=== PATIENT | male | born 1995 | race Caucasian/White ===

== ENCOUNTER 2016-06-08 14:33 | Emergency (ER) | payer OTHER ==
[2016-06-08 14:43] VITALS: BP 116/90; TEMP 97.8; BMI 20.2
--- NOTE | 2016-06-08 15:04 | ED.PDOC ---
General ED Provider: Dr. DA GARLAND-ER Chief Complaint: Hand Pain/Injury Stated Complaint: i fell in the shower---my wrist and back and hips hurt--i didnt hurt my head or my neck --denies dorsey or neck pain Time Seen by Physician: 14:40 Mode of Arrival: Walk-In Information Source: Patient Exam Limitations: No limitations Primary Care Provider: DA GARLAND Nursing and Triage Documentation Reviewed and Agree: Yes Musculoskeletal Complaint Exam - Hand/Wrist Complaint/Exam Location of Pain: Reports: Left, Hand, Wrist Mechanism of Injury: Reports: Trauma Onset/Duration: 24hrs Symptoms Are: Still present Onset of Pain: Reports: Immediate Initial Severity: Mild Current Severity: Mild Location: Reports: Discrete (left hand/wrist) Character: Reports: Dull, Aching Alleviating: Reports: None Aggravating: Reports: Movement Associated Signs and Symptoms: Denies: Swelling, Redness, Bruising, Fever, Weakness, Numbness, Tingling Dominant Hand: Left Tenderness: Present: Radius, Ulna Compartment Syndrome Risk Factors: Present: Pain Differential Diagnoses: Closed Fracture Review of Systems - Review Of Systems Constitutional: Reports: No symptoms Eyes: Reports: No symptoms Ears, Nose, Mouth, Throat: Reports: No symptoms Respiratory: Reports: No symptoms Cardiac: Reports: No symptoms GI: Reports: No symptoms : Reports: No symptoms Musculoskeletal: Reports: Back pain, Muscle pain Skin: Reports: No symptoms Neurological: Reports: No symptoms Endocrine: Reports: No symptoms Hematologic/Lymphatic: Reports: No symptoms All Other Systems: Reviewed and Negative Past Medical History - Past Medical History Endocrine: Reports: None Cardiovascular: Reports: Other (BRADYCARDIA) Respiratory: Reports: None Hematological: Reports: None Gastrointestinal: Reports: None Genitourinary: Reports: None Neuro/Psych: Reports: None Musculoskeletal: Reports: None Cancer: Reports: None - Surgical History General Surgical History: Reports: None - Family History Family History: Reports: Unknown - Social History Smoking Status: Current every day smoker, Heavy tobacco smoker Hx Substance Use: Yes Alcohol Screening: None Lives: With family Physical Exam - Physical Exam Appearance: Well-appearing, No pain distress, Well-nourished Pain Distress: Mild Eyes: JENNIFER, EOMI, Conjunctiva clear ENT: Ears normal, Nose normal, Oropharynx normal Neck: Supple Respiratory: Airway patent Cardiovascular: RRR, Pulses normal, No rub, No murmur GI/: Soft, Nontender, No masses, Bowel sounds normal, No Organomegaly Musculoskeletal: Limited ROM Skin: Warm, Dry, Normal color Neurological: Sensation intact, Motor intact, Reflexes intact, Cranial nerves intact, Alert, Oriented Psychiatric: Affect appropriate, Mood appropriate Interpretation - Radiology Interpretation Radiology Interpretation By: ED Physician Radiology Results: Negative Critical Care Note - Critical Care Note Total Time (mins): 0 Course - Course Orders, Labs, Meds: Orders Category Date Time Status CHEST, 2 VIEWS PA & LAT Stat RADS 06/08/16 14:51 Completed HAND, LEFT 3 VIEWS Stat RADS 06/08/16 14:47 Completed LUMBAR SPINE, MIN 4 VIEWS Stat RADS 06/08/16 14:50 Taken PELVIS & CONCHIS HIPS Stat RADS 06/08/16 14:50 Taken THORACIC SPINE, 3 VIEWS Stat RADS 06/08/16 14:51 Taken WRIST, LEFT 3 VIEWS Stat RADS 06/08/16 14:47 Completed Vital Signs: Temp Pulse Resp BP Pulse Ox 06/08/16 14:35 97.8 F 70 20 116/90 95 Departure - Departure Time of Disposition: 15:41 Disposition: HOME SELF-CARE Discharge Problem: Sprain of left wrist Qualifiers: Encounter type: initial encounter Qualifier Code: (S63.502A) Unspecified sprain of left wrist, initial encounter Instructions: Wrist Injury (ED) Condition: Good Pt referred to PMD for follow-up: Yes Additional Instructions: stay in splint--toradol 10mg qid prn pain #16---see me if not better in a few days Allergies/Adverse Reactions: Allergies No Known Allergies Allergy (Unverified 02/21/15 11:57) Home Medications: Ambulatory Orders 1 [No Reported Medications] 06/08/16 Disposition Discussed With: Patient
--- NOTE | 2016-06-08 15:32 | DI ---
EXAM: Three views of the left wrist. HISTORY: Fell in shower. FINDINGS: The bones are intact with no evidence of fracture. The joint spaces are maintained. No s oft tissue abnormality. Impression: Negative left wrist.
--- NOTE | 2016-06-08 15:32 | DI ---
Exam: Three x-rays of the left hand. Comparison: 12/16/2011. Reason for exam: Trauma. No acute fracture or dislocation. The joint spaces are well maintained. No unexplained osseous sof t tissue densities. The scaphoid appears intact. Impression: No acute fracture or dislocation in the left hand.
--- NOTE | 2016-06-08 15:32 | DI ---
EXAM: Chest two views HISTORY: Trauma COMPARISON: 12/08/2013 TECHNIQUE: Two views of the chest were performed FINDINGS: The lungs are clear. There is no pleural effusion or pneumothorax. The heart is normal in size. The mediastinal contour is normal. There are no acute abnormalities of the bones. IMPRESSION: No acute cardiopulmonary process.
--- NOTE | 2016-06-08 15:34 | DI ---
EXAM: Thoracic spine two view HISTORY: Trauma COMPARISON: None FINDINGS: The vertebral bodies are normal in height. No subluxation. Minimal rightward curvature m id/upper thoracic spine. Intervertebral disk spaces are maintained. No fracture. IMPERSSION: No fracture or subluxation
--- NOTE | 2016-06-08 15:35 | DI ---
Exam: Two x-rays of the pelvis. Comparison: 02/21/2015. Reason for exam: Trauma. FINDINGS: No acute fracture or dislocation. The pelvic ring is intact. The sacroiliac joints are symmetric. The femoral heads articulate with the acetabulum bilaterally. Impression: No acute fracture or dislocation in the pelvis.
--- NOTE | 2016-06-08 15:37 | DI ---
EXAM: Lumbar spine five views, including oblique views HISTORY: Back pain COMPARISON: CT 11/29/2011 FINDINGS: The vertebral bodies are normal in height. Alignment is normal. Intervertebral disk space s are maintained. No fracture. The sacral arcuate lines are intact. Sacroiliac joints intact. 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 No fracture or subluxation. 2. 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
== END 2016-06-08 15:57 | disposition home or self-care (01) ==
LOC: ED 14:33
DX: S63.502A Unspecified sprain of left wrist, initial encounter (principal); M54.9 Dorsalgia, unspecified; M25.552 Pain in left hip; M25.551 Pain in right hip; W18.2XXA Fall in (into) shower or empty bathtub, initial encounter; F17.210 Nicotine dependence, cigarettes, uncomplicated
CPT/HCPCS: 99283